=== PATIENT | male | born 1965 | race Asian ===

== ENCOUNTER 2017-08-29 08:53 | Emergency (ER) | payer OTHER ==
[2017-08-29 09:02] VITALS: TEMP 97.7; O2SAT 97
--- NOTE | 2017-08-29 09:12 | CPEKG ---
Heart Rate: 85 RR Interval: 706 P-R Interval: 176 QRSD Interval: 92 QT Interval: 360 QTC Interval: 428 P [place]: 51 QRS [place]: 62 T Wave [place]: 43 EKG Severity - BORDERLINE ECG - EKG Impression: SINUS RHYTHM EKG Impression: BORDERLINE T WAVE ABNORMALITIES Electronically Signed By: Henry Hutchison 06-Sep-2017 12:34:51
--- NOTE | 2017-08-29 09:12 | CPEKG ---
Heart Rate: 85 RR Interval: 706 P-R Interval: 176 QRSD Interval: 92 QT Interval: 360 QTC Interval: 428 P [place]: 51 QRS [place]: 62 T Wave [place]: 43 EKG Severity - BORDERLINE ECG - EKG Impression: SINUS RHYTHM EKG Impression: BORDERLINE T WAVE ABNORMALITIES Electronically Signed By: Henry Hutchison 06-Sep-2017 12:34:51
[2017-08-29] MEDS ORDERED: valACYclovir 500 MG TAB PO ONE (09:25)
[2017-08-29 09:44] LABS: PLATELET COUNT 214 10^3/uL (150-400)
--- NOTE | 2017-08-29 09:44 | EDPHY ---
H & P Stated Complaint: L upper back radiating to chest and L arm x 3 days Time Seen by Provider: 08/29/17 09:11 HPI/ROS: Chief Complaint: Left back pain, chest pain, rash HPI: 52-year-old diabetic male presenting with 3 days of pain in his left upper back, left upper chest. Patient then noticed he developed a rash this morning. Pain has been intermittent. Is described as a tightness. Is not have any aggravating or alleviating factors. No history of the same. He is a diabetic but no history of coronary artery disease. No shortness of breath. No fevers or chills. No cough. No nausea or vomiting. ROS: 10 point Review of Systems is negative except as noted in the HPI. PMH: Diabetes Social History: No smoking, no alcohol, no recreational drug use Family History: non-contributory Physical Exam: Gen: Awake, Alert, No Distress HEENT: Nose: no rhinorrhea Eyes: PERRLA, EOMI Mouth: Moist mucosa Neck: Supple, no JVD Chest: nontender, lungs clear to auscultation, patient has a vesicular rash on an erythematous base in his left upper chest, extending to his axilla and his left upper back. It does not cross the midline. Heart: S1, S2 normal, no murmur Abd: Soft, non-tender, no guarding Back: no CVA tenderness, no midline tenderness Ext: no edema, non-tender Skin: Vesicular rash on chest and back per chest exam Neuro: CN II-XII intact, Sensation grossly intact, Strength 5/5 in bilateral upper and lower extremities - Personal History Current Tetanus/Diphtheria Vaccine: Unsure Current Tetanus Diphtheria and Acellular Pertussis (TDAP): Unsure - Medical/Surgical History Hx Asthma: No Hx Chronic Respiratory Disease: No Hx Diabetes: No Hx Cardiac Disease: No Hx Renal Disease: No Hx Cirrhosis: No Hx Alcoholism: No Hx HIV/AIDS: No Hx Splenectomy or Spleen Trauma: No Other PMH: diabetic, hyperlipidemia - Social History Smoking Status: Never smoked Constitutional: Initial Vital Signs Temperature (C) 36.5 C 08/29/17 08:58 Heart Rate 88 08/29/17 08:58 Respiratory Rate 16 08/29/17 08:58 Blood Pressure 130/91 H 08/29/17 08:58 O2 Sat (%) 97 08/29/17 08:58 O2 Delivery Mode Room Air Allergies/Adverse Reactions: No Known Allergies Allergy (Verified 04/14/13 00:47) Home Medications: Medication Instructions Recorded FENOFIBRATE 54 mg PO 02/28/12 Glipizide [Glipizide 5 mg (RX)] 5 mg PO DAILY 02/28/12 Hydrocodone/Acetaminophen 1 - 2 each PO Q4-6PRN PRN #10 08/29/17 [Hydrocodon-Acetaminophen 5-325] tablet Metformin HCl 08/29/17 Valacyclovir HCl [Valtrex] 1,000 mg PO TID #21 tab 08/29/17 Zocor 08/29/17 Medical Decision Making - Diagnostics EKG Interpretation: ECG time 9:10 a.m.. Sinus rhythm with a rate of 85, normal axis, normal intervals, no acute ST T-wave changes. Impression: Normal ECG. - Data Points Laboratory Results: 08/29/17 08/29/17 09:32 09:32 WBC Pending RBC Pending Hgb Pending Hct Pending MCV Pending MCH Pending MCHC Pending RDW Pending Plt Count Pending MPV Pending Neut % (Auto) Pending Lymph % (Auto) Pending [place] % (Auto) Pending Eos % (Auto) Pending Baso % (Auto) Pending Nucleat RBC Rel Count Pending Absolute Neuts (auto) Pending Absolute Lymphs (auto) Pending Absolute Monos (auto) Pending Absolute Eos (auto) Pending Absolute Basos (auto) Pending Absolute Nucleated RBC Pending Immature Gran % Pending Immature Gran # Pending Sodium Pending Potassium Pending Chloride Pending Carbon Dioxide Pending Anion Gap Pending BUN Pending Creatinine Pending Estimated GFR Pending Glucose Pending Calcium Pending Troponin I Pending Departure - Departure Disposition: Home, Routine, Self-Care Clinical Impression: Shingles Condition: Good Instructions: Shingles (ED) Additional Instructions: Take her full course of antiviral medications. Follow up with her primary care physician in 3-4 days for further evaluation. You may take ibuprofen 600 mg 3 times a day for pain. You may take hydrocodone with acetaminophen if the ibuprofen is not relieving her pain. Return to the emergency department for worsening pain, uncontrolled fevers or chills, nausea, vomiting, or any other concerns. Referrals: Katty Villa MD [Primary Care Provider] - As per Instructions Prescriptions: Hydrocodone/Acetaminophen [Hydrocodon-Acetaminophen 5-325] 1 - 2 each PO Q4- 6PRN PRN #10 tablet PRN Reason: Pain, Severe Valacyclovir HCl [Valtrex] 1,000 mg PO TID #21 tab
[2017-08-29 10:33] VITALS: BP 130/72; PULSE 90; RESP 18
== END 2017-08-29 10:45 | disposition home or self-care (01) ==
DX: B02.9 Zoster without complications (principal); E11.9 Type 2 diabetes mellitus without complications; Z79.84 Long term (current) use of oral hypoglycemic drugs

== ENCOUNTER → 2018-02-23 | Outpatient (CLI) | payer OTHER | LOC: FIMAGING 07:44 | PROVIDERS: ATTEND Physician Assistant | DX: K59.00 Constipation, unspecified (principal); E11.9 Type 2 diabetes mellitus without complications | CPT/HCPCS: 78264; A9541 ==

== ENCOUNTER → 2018-03-03 | Outpatient (CLI) | payer OTHER | LOC: FIMAGING 08:58 | PROVIDERS: ATTEND Physician Assistant | DX: K76.0 Fatty (change of) liver, not elsewhere classified (principal); K82.8 Other specified diseases of gallbladder ==

== ENCOUNTER → 2018-08-26 | Outpatient (CLI) | payer OTHER | LOC: FIMAGING 09:38 | PROVIDERS: ATTEND Physician Assistant | DX: K76.0 Fatty (change of) liver, not elsewhere classified (principal); K40.90 Unilateral inguinal hernia, without obstruction or gangrene, not specified as recurrent ==

== ENCOUNTER 2018-11-08 08:44 | Day surgery (SDC) | payer OTHER ==
--- NOTE | 2018-11-08 07:01 | PDGENHP ---
History and Physical - Chief Complaint LIH - History of Present Illness Otherwise healthy 53yo M presents with LIH. Has had for some time. Works at a [employer] and routinely performs heavy lifting. No obstructive symptoms. History Information - Allergies/Home Medication List Allergies/Adverse Reactions: No Known Allergies Allergy (Verified 04/14/13 00:47) Home Medications: Glipizide [Glipizide 5 mg (RX)] 02/28/12 [Last Taken Unknown] Metformin HCl 08/29/17 [Last Taken Unknown] Aspirin 10/31/18 [Last Taken Unknown] Atorvastatin Calcium 10/31/18 [Last Taken Unknown] Cipro 10/31/18 [Last Taken Unknown] I have personally reviewed and updated: family history, medical history, social history, surgical history - Social History Smoking Status: Never smoked Review of Systems Review of Systems: ROS: 10pt was reviewed & negative except for what was stated in HPI & below Physical Exam Physical Exam: Constitutional: no apparent distress, appears nourished, not in pain Eyes: PERRL, anicteric sclera, EOMI Ears, Nose, Mouth, Throat: moist mucous membranes, hearing normal, ears appear normal, no oral mucosal ulcers Cardiovascular: regular rate and rhythym, no murmur, rub, or gallop, No edema Respiratory: no respiratory distress, no rales or rhonchi, clear to auscultation Gastrointestinal: normoactive bowel sounds, soft, non-tender abdomen, other ( reducible LIH) Genitourinary: no bladder fullness, no bladder tenderness Skin: warm, normal color, no rashes or abrasions, no fluctuance, no induration, No mottled Musculoskeletal: full muscle strength, no muscle tenderness, normal joint ROM, no joint effusions Psychiatric: interacting appropriately, not anxious, not encephalopathic, thought process linear Lymph, Heme, Immunologic: no cervical LAD, no supraclavicular LAD Assessment & Plan Assessment: 53yo M c reducible LIH Plan: to OR for robotic assisted repair. RBA discussed.
[2018-11-08] MEDS ORDERED: ceFAZolin 2 GM/DEXTROSE 100 ML IV ONE (09:07)
[2018-11-08] MEDS ORDERED: LR 1,000 ML IV ONE (09:08)
[2018-11-08] MEDS ORDERED: LIDOCAINE 1% 2 ML INJ ID PRN (09:08)
[2018-11-08] MEDS ORDERED: BUPIVACAINE/EPI 0.25% 30 ML SDV ONE (09:32)
[2018-11-08] MEDS ORDERED: LIDOCAINE 1% 2 ML INJ ONE (09:42)
[2018-11-08] MEDS ORDERED: MIDAZOLAM 2 MG/2 ML VIAL IVP ONE (10:29)
[2018-11-08] MEDS ORDERED: fentaNYL 100 MCG/2 ML INJ ONE ×3 (10:33→12:06)
[2018-11-08] MEDS ORDERED: PROPOFOL 200 MG/20 ML VIAL ONE (10:33)
[2018-11-08] MEDS ORDERED: ROCURONIUM 50 MG/5 ML VIAL ONE (10:36)
[2018-11-08] MEDS ORDERED: DEXAMETHASONE 4 MG/ML VIAL ONE (10:36)
[2018-11-08] MEDS ORDERED: KETOROLAC 30 MG/1 ML SDV ONE (10:36)
[2018-11-08] MEDS ORDERED: SUGAMMADEX SODIUM 200 MG/2 ML VIAL IVP ONE (10:36)
[2018-11-08] MEDS ORDERED: ONDANSETRON 4 MG/2 ML VIAL ONE (10:36)
[2018-11-08] MEDS ORDERED: LIDOCAINE 2% 5 ML SDV ONE (10:37)
--- NOTE | 2018-11-08 10:43 | PDANEPAE ---
ANE History of Present Illness inguinal hernia ANE Past Medical History - Cardiovascular History Hx Hypertension: Yes Hx Arrhythmias: No Hx Chest Pain: No Hx Coronary Artery / Peripheral Vascular Disease: No Hx CHF / Valvular Disease: No Hx Palpitations: No Cardiovascular History Comment: high cholesterol - Pulmonary History Hx COPD: No Hx Asthma/Reactive Airway Disease: No Hx Recent Upper Respiratory Infection: No Hx Oxygen in Use at Home: No Hx Sleep Apnea: No Sleep Apnea Screening Result - Last Documented: Positive - Neurologic History Hx Cerebrovascular Accident: No Hx Seizures: No Hx Dementia: No - Endocrine History Hx Diabetes: Yes Endocrine History Comment: type 2 DM - Renal History Hx Renal Disorders: No - Liver History Hx Hepatic Disorders: Yes Hepatic History Comment: fatty liver - Neurological & Psychiatric Hx Hx Neurological and Psychiatric Disorders: No - Cancer History Hx Cancer: No - Congenital Disorder History Hx Congenital Disorders: No - GI History Hx Gastrointestinal Disorders: Yes Gastrointestinal History Comment: constipation - Other Health History Other Health History: missing teeth - Chronic Pain History Chronic Pain: No - Surgical History Prior Surgeries: none n last 5 yrs ANE Review of Systems Review of systems is: negative Review of Systems: - Exercise capacity METS (RN): 5 METS ANE Patient History - Allergies Allergies/Adverse Reactions: lisinopril Allergy (Mild, Verified 11/08/18 09:40) cough - Home Medications Home medications: home medication list seen and reviewed Home Medications: Glipizide [Glipizide 5 mg (RX)] 02/28/12 [Last Taken 11/07/18] Metformin HCl 08/29/17 [Last Taken 11/07/18] Aspirin 81 mg 10/31/18 [Last Taken 11/07/18] Atorvastatin Calcium 10/31/18 [Last Taken 11/07/18] Cipro 10/31/18 [Last Taken 11/08/18 07:00] Losartan Potassium 25 mg PO 11/08/18 [Last Taken 11/08/18 07:00] - NPO status NPO Since - Liquids (Date): 11/08/18 NPO Since - Liquids (Time): 07:00 NPO Since - Solids (Date): 11/07/18 NPO Since - Solids (Time): 19:00 - Anes Hx Anes Hx: no prior problems - Smoking Hx Smoking Status: Never smoked - Family Anes Hx Family Hx Anesthesia Complications: none ANE Labs/Vital Signs - Vital Signs Blood Pressure: 131/88 Heart Rate: 82 Respiratory Rate: 11 O2 Sat (%): 99 Height: 170.18 cm Weight: 67.132 kg ANE Physical Exam - Airway Neck exam: FROM Mallampati Score: Class 1 Mouth exam: normal dental/mouth exam - Pulmonary Pulmonary: no respiratory distress - Cardiovascular Cardiovascular: regular rate and rhythym - ASA Status ASA Status: II ANE Anesthesia Plan Anesthesia Plan: general endotracheal anesthesia
[2018-11-08] MEDS ORDERED: ACETAMINOPHEN 500 MG TAB PO PRN (11:19)
[2018-11-08] MEDS ORDERED: oxyCODONE IR 5 MG TAB PO PRN (11:19)
[2018-11-08] MEDS ORDERED: METOCLOPRAMIDE 10 MG/2 ML VIAL IVP PRN (11:19)
[2018-11-08] MEDS ORDERED: HYDROmorphONE/DILAUDID 2 MG/ML INJ IVP PRN (11:19)
[2018-11-08] MEDS ORDERED: fentaNYL 100 MCG/2 ML INJ IVP PRN (11:19)
[2018-11-08] MEDS ORDERED: PROMETHAZINE HCL 25 MG/ML INJ IVP PRN (11:19)
[2018-11-08] MEDS ORDERED: ALBUTEROL 3 ML DEYVIAL IH PRN (11:19)
[2018-11-08] MEDS ORDERED: ONDANSETRON 4 MG/2 ML VIAL IVP PRN (11:19)
[2018-11-08] MEDS ORDERED: HYDROCODONE/APAP 5/325 TAB PO PRN (11:19)
[2018-11-08] MEDS ORDERED: NALOXONE HCL 0.4 MG/ML INJ IVP PRN (11:19)
--- NOTE | 2018-11-08 11:19 | POSTANESTH ---
Post Anesthetic Evaluation Cardiovascular Status: Normal, Stable Respiratory Status: Normal, Stable Level of Consciousness/Mental Status: Can Participate in Eval, Mildly Sleepy, Arousable Pain Control: Adequate, Prn Tx Ordered Nausea/Vomiting Control: Adequate, Prn Tx Ordered Complications Possibly Related to Anesthesia: None Noted
--- NOTE | 2018-11-08 11:41 | POSTOPPROG ---
Post Op Note Date of Operation: 11/08/18 Surgeon: Duke Ramirez Chief Service Dispatcher: VI Merino Anesthesiologist: Sharlene Anesthesia: GET(General Endotracheal) Pre-op Diagnosis: LIH Post-op Diagnosis: indirect LIH Procedure: robo assisted LIH c mesh Findings: small indirect defect Inf/Abcess present in the surg proc area at time of surgery?: No EBL: Minimal
[2018-11-08] MEDS ORDERED: HYDROCODONE/APAP 5/325 TAB ONE (12:06)
[2018-11-08 13:38] VITALS: BP 138/87
--- NOTE | 2018-11-08 15:51 | GOP ---
DATE OF OPERATION: 11/08/2018 SURGEON: Duke Ramirez MD ENVELOPE [employer]AMPING MACHINE OPERATOR: Kristan Merino CFA. ANESTHESIA: General endotracheal. ANESTHESIOLOGIST: Dr. Bernardo Su. PREOPERATIVE DIAGNOSIS: Left inguinal hernia. POSTOPERATIVE DIAGNOSIS: Indirect left inguinal hernia. PROCEDURE PERFORMED: Robotic assisted left inguinal hernia repair with mesh. FINDINGS: Small indirect defect successfully reduced. Defect repaired with Bard 3D Light large-size mesh. SPECIMENS: None. ESTIMATED BLOOD LOSS: 5 cc. DESCRIPTION OF PROCEDURE: The patient was greeted in the preoperative suite. Once again, risks, ferny efits, and alternatives were discussed. Consent was signed. He was then brought back to the operati ve suite, placed on the OR table in supine position. After all anesthesia machines including SCDs we re on and functioning, [employer] time-out was performed. After successful induction of general anesthesia, the patient's abdomen was prepped and draped in typical sterile fashion. I co mmenced the procedure by creating a supraumbilical cutdown through which a Veress needle was passed. I achieved pneumoperitoneum to 15 mmHg CO2, which was well tolerated by the patient. I then inserte d an 8 mm trocar through this. Once successfully in the abdomen, I placed 2 additional 8 mm trocars, 1 on the right and 1 in the left upper quadrant, both done under direct visualization. Once success fully in the abdomen, I placed the patient in gentle Trendelenburg position. I started by interrogat ing the abdomen. I found no right-sided defects and what appeared to be a small indirect defect on t he left side. I then created my preperitoneal flap starting just medial to the ASIS, carrying this a ll the way to the pubic tubercle. I took the flap all the way down to the visceral sac skeletonizing the cord structures. He did have a decent sized cord lipoma which was also removed. After skeleton ization of the cord structures, I found no other defects in the direct, obturator or femoral canal. Bard 3D Light large size left mesh was then brought into place. It was tacked to the pubic tubercle as well as either side of the inferior epigastric vessels. I then closed the peritoneal defect with a running V-Loc suture. Pneumoperitoneum was evacuated. The robot was undocked. I closed the port sites with running 4-0 Monocryl over which Dermabond was placed. The patient was then extubated in t operative suite and taken to PACU in satisfactory condition. DRAINS: None. COUNTS: All counts were reported as correct x2. /[id number]/MODL
== END 2018-11-08 14:13 | disposition home or self-care (01) ==
LOC: FSGY 08:44
PROVIDERS: ATTEND Surgery
PROC: 0YU64JZ Supplement Left Inguinal Region with Synthetic Substitute, Percutaneous Endoscopic Approach (ICD-10-PCS; principal; 2018-11-08 10:44)
PROC: 8E0W4CZ Robotic Assisted Procedure of Trunk Region, Percutaneous Endoscopic Approach (ICD-10-PCS; principal; 2018-11-08 10:44)
DX: K40.90 Unilateral inguinal hernia, without obstruction or gangrene, not specified as recurrent (principal); E53.8 Deficiency of other specified B group vitamins; E11.9 Type 2 diabetes mellitus without complications; E78.5 Hyperlipidemia, unspecified; Z79.82 Long term (current) use of aspirin
CPT/HCPCS: C1781; J0690; J1100; J1885; J2250; J2405; J2704; J3010

== ENCOUNTER → 2019-01-09 | Outpatient (CLI) | payer OTHER ==
[~2019-01-09] MED LIST: IOPAMIDOL (ISOVUE-300) 100 ML BTL ONE
== END ==
LOC: FIMAGING 07:40
PROVIDERS: ATTEND Physician Assistant Medical
DX: R10.2 Pelvic and perineal pain (principal); R31.29 Other microscopic hematuria; N40.0 Benign prostatic hyperplasia without lower urinary tract symptoms; K59.00 Constipation, unspecified
CPT/HCPCS: Q9967